=== PATIENT | male | born 1955 | race Caucasian/White ===

== ENCOUNTER 2023-04-29 13:46 | Emergency (ER) | payer MEDICARE, OTHER, SELFPAY ==
[2023-04-29 14:15] LABS: % Basophils 1.3 % (0-2); % Eosinophils 4.6 % (0-6); % Immature Granulocytes 0.3 % (0-0.5); % Lymphocytes 20.6 % (20.5-51.1); % Monocytes 10.6 % (1.7-9.3); % Neutrophils 62.6 % (42.2-75.2); Absolute Basophils 0.1 10^3/uL (0-0.2); Absolute Eosinophils 0.3 10^3/uL (0-0.7); Absolute Lymphocytes 1.4 10^3/uL (1.2-3.4); Absolute Monocytes 0.7 10^3/uL (0.1-0.6); Absolute Neutrophils 4.2 10^3/uL (1.4-6.5); Hemoglobin 14.8 g/dL (13.0-18.0); Mean Corp Hgb Conc. 34.4 g/dL (33.0-37.0); Mean Corpuscular Volume 92.9 fL (80.0-94.0); Mean Platelet Volume 8.9 fL (7.4-10.4); Nucleated Red Blood Cells % 0 % (-); Platelet Count 252 10^3/uL (130-400); Red Blood Cell Count 4.63 10^6/uL (4.70-6.10); Red Cell Dist. Width 12.6 % (11.5-14.5); White Blood Cell Count 6.7 10^3/uL (4.8-10.8)
[2023-04-29 14:39] LABS: Troponin I < 0.012 ng/ml
[2023-04-29 14:43] LABS: ALT (SGPT) 26 U/L (0-50); AST (SGOT) 26 U/L (17-59); Albumin 4.7 g/dl (3.5-5.0); Alkaline Phosphatase 93 U/L (38-126); Blood Urea Nitrogen 15 mg/dl (9-20); Calcium 9.4 mg/dl (8.4-10.2); Carbon Dioxide 23 mmol/L (22-30); Chloride 108 mmol/L (98-107); Glucose 99 mg/dl (70-99); Potassium 4.1 mmol/L (3.5-5.1); Sodium 139 mmol/L (135-145); Total Bilirubin 0.8 mg/dl (0.2-1.3); Total Protein 7.8 g/dl (6.3-8.2); eGFR > 60.00
[2023-04-29 16:00] VITALS: BP 155/88
--- NOTE | 2023-04-29 16:05 | ED.GENMED ---
History of Present Illness
<Rafaela Tidwell PA-C - Last Filed: 04/29/23 19:23>
General
Chief Complaint: Visual Problem
Source: patient
Exam Limitations: none
Time Seen by Provider: 04/29/23 15:57
Nursing documentation reviewed up to this point in time: agreed with
Travel History
Have you had any contact with someone who has COVID-19?: No
Do you have any symptoms of coronavirus? Fever > 100 degrees, chills, cough, shortness of breath, sore throat, loss of taste or smell, muscle aches, or headache?: No
History of Present Illness
History of Present Illness:
This is a 67-year-old male with past medical history of asthma, A-fib on Eliquis, vertebral artery stenosis, vertigo, presents today with concerns of an episode of flushing, some lightheadedness, and palpitations while driving. Patient states that
this started to occur only when he sharply looked to his left and his rearview mirror. The episode lasted around 30 seconds and quickly resolved. Patient is currently asymptomatic. He was concerned and presented today because back in November,
he had a similar episode that lasted a few minutes and had associated double vision, also occurring in the car. He did not have double vision or any visual changes today. He states that at that time in November, he was eventually found to have
vertebral artery stenosis is the likely cause to his symptoms, however the stenosis was not severe enough to need stent placement. Patient was told to return if he ever has any similar symptoms. He also has associated right sided frontal headache
and persistent congestion following a COVID infection a few weeks ago. Patient denies chest pain, back pain, shortness of breath.
Past History
<Rafaela Tidwell PA-C - Last Filed: 04/29/23 19:23>
Past History
ED Past Medical History: Asthma, GERD, HTN and Other (palpitations, osteoarthritis and fractures)
ED Past Surgical History: Appendectomy and Orthopedic (Knee surgery, lumbar discectomy, right shoulder surgery, right elbow surgery in 1994 and left thumb surgery and 16/01)
Social History
Tobacco: Non-smoker
Alcohol: Occasional
Drug: None
Personal:
Living: with family
Employment: Employed
Family History
Family History: Negative Early CAD
Review of Systems
<GENIE Lee Last Filed: 04/29/23 19:23>
Review of Systems
All Other Systems: ROS reviewed and negative except as documented in HPI and ROS
Phy Exam
<GENIE Lee Last Filed: 04/29/23 19:23>
Physical Exam
Physical Exam:
General: Patient is well-appearing and is in no acute distress.
Skin: Skin is warm dry, there is a small circular red lesion on the right cheek which patient states is a result of radiation treatment for skin cancer
HEENT: Eyes�no nystagmus
Cardiac: Regular rate and rhythm, no murmur
Pulm: Normal respiratory effort
Neurological: Patient is alert and oriented x 3. Renal nerves II through XII intact, no focal neurologic deficit. No tenderness testing intact, [id number] testing intact.
Course
<GENIE Lee Last Filed: 04/29/23 19:23>
Orders/Labs/Results
Orders:
Orders
04/29/23 13:54
Electrocardiogram (*1) Urgent
Reason for Study: Chest Pain
EKG- Treatment ONCE
04/29/23 14:05
Complete Blood Count/With Diff Urgent
Comprehensive Metabolic Panel Urgent
Troponin I Urgent
04/29/23 17:27
CT Head & Neck Angio W/wo IV Urgent
Reason For Exam: transient visual change
Abnormal Lab Results
04/29/23
14:05
RBC 4.63 L 10^6/uL
(4.70-6.10)
MCH 32.0 H pg
(27.0-31.0)
Absolute Monos (auto) 0.7 H 10^3/uL
(0.1-0.6)
Monocytes % 10.6 H %
(1.7-9.3)
Chloride 108 H mmol/L
(98-107)
04/29/23 14:05
04/29/23 14:05
Vital Signs
Initial and Last Documented VS:
Initial Vital Signs
Temp Pulse Resp Pulse Ox
97.8 F 78 18 94
04/29/23 13:52 04/29/23 13:52 04/29/23 13:52 04/29/23 13:52
Last Documented Vital Signs
Temp Pulse Resp BP Pulse Ox
97.8 F 67 15 145/70 95
04/29/23 13:52 04/29/23 19:00 04/29/23 19:00 04/29/23 19:00 04/29/23 19:00
Alizalt;Salinas Casanova, - Last Filed: 04/29/23 19:47>
Orders/Labs/Results
Orders:
Orders
04/29/23 13:54
Electrocardiogram (*1) Urgent
Reason for Study: Chest Pain
EKG- Treatment ONCE
04/29/23 14:05
Complete Blood Count/With Diff Urgent
Comprehensive Metabolic Panel Urgent
Troponin I Urgent
04/29/23 17:27
CT Head & Neck Angio W/wo IV Urgent
Reason For Exam: transient visual change
Abnormal Lab Results
04/29/23
14:05
RBC 4.63 L 10^6/uL
(4.70-6.10)
MCH 32.0 H pg
(27.0-31.0)
Absolute Monos (auto) 0.7 H 10^3/uL
(0.1-0.6)
Monocytes % 10.6 H %
(1.7-9.3)
Chloride 108 H mmol/L
(98-107)
04/29/23 14:05
04/29/23 14:05
Vital Signs
Initial and Last Documented VS:
Initial Vital Signs
Temp Pulse Resp Pulse Ox
97.8 F 78 18 94
04/29/23 13:52 04/29/23 13:52 04/29/23 13:52 04/29/23 13:52
Last Documented Vital Signs
Temp Pulse Resp BP Pulse Ox
97.8 F 67 15 145/70 95
04/29/23 13:52 04/29/23 19:00 04/29/23 19:00 04/29/23 19:00 04/29/23 19:00
<Rafaela Tidwell PA-C - Last Filed: 04/29/23 19:23>
MDM/Problems Addressed
MDM/Problems Addressed:
Differentials include critical vertebral artery stenosis, carotid stenosis, tension headache, sinusitis, upper respiratory tract infection
Chronic conditions affecting care:
Hypertension, A-fib, PDA, GERD, vertebral artery stenosis
Acute Exacerbation and/or Progression of Chronic Illness:
n/a
<Rafaela Tidwell PA-C - Last Filed: 04/29/23 19:23>
*Critical Care Note
Total Time (30-74mins, 75-104mins- exclusive of procedures): Not Applicable
Data Reviewed
Review of Other/Old Records Reveals: Records (Reviewed documentation in November from transesophageal echo she had)
<Rafaela Tidwell PA-C - Last Filed: 04/29/23 19:23>
Patient Management
Escalation/DeEscalation of care consider admission/obs:
This is a 59-year-old male with past medical history of vertebral artery stenosis, vertigo who presents today following episode of flushing and lightheadedness. Patient states that this occurred while driving. He reported emergency department
today because he is concerned because he had a similar episode in November where he was diagnosed with vertebral artery stenosis. Currently, he is asymptomatic. Physical exam is unremarkable, he has no focal neurologic deficits. His CBC and CMP
are unremarkable, and his vital signs are stable. His CTA of the head and neck revealed no acute intracranial abnormality and no critical stenosis or occlusion of picayune of Laz[place]. Although patient states that this feels different than his normal
vertigo, I suspect his symptoms are likely related to position, as she only came on when he quickly turned his head. Patient states that he plans to call Dr. Zeng and Dr. Dunaway, his braille teacher and neurologist, for a follow-up appointment tomorrow.
ED Attending Note
<Rafaela Tidwell PA-C - Last Filed: 04/29/23 19:23>
-
Portions of this chart may have been created with voice recognition software.� Occasional wrong word or��sound alike� substitutions may have occurred due to the inherent limitations of voice recognition software.
<Salinas Casanova DO - Last Filed: 04/29/23 19:47>
ED Attending Note
Patient seen and examined by attending physician: Yes
I performed the substantive portion of visit, reviewed & personally made and approve the management plan that is documented in note by myself or HYACINTH.: Yes
ED Attending Note:
I agree with Rafaela's note.
Patient presents after an episode of facial flushing and body flushing while driving. Patient states the episode was not the same but reminiscent of an episode of diplopia he had in October. At that time he had a stroke evaluation and was
ultimately found to have some level of vertebral artery stenosis. An angiogram was performed which showed noncritical disease and no intervention was undertaken. Patient states he had COVID in February and since then has not felt right. He has a
pressure in the left frontal area.
VSS
Awake, interactive. Acceptable vital signs
Heart: no murmur
Non-focal neuro exam at this time.
Patient has high level of concern that he is having progression of his vertebral artery stenosis. The symptoms he is having today are not really consistent with a focal neurologic event. However patient relays information that his neurologist
instructed him to be very vigilant about any symptoms and immediately return to the emergency room should he have any. Will obtain a plain CT and a CTA to exclude any significant changes.
Discharge Plan
Departure
Patient Disposition: Home (Routine Discharge)
Date of Disposition: 04/29/23
Time of Disposition: 18:59
Patient with high blood pressure during this ER visit?: Yes
Condition: Good
Discharge Problem:
Facial flushing, Light-headedness
Instructions: Headache, Adult, Vertigo (a Type of Dizziness) (DC)
Prescriptions:
No Action
losartan 50 MG tablet
100 mg PO DAILY
Eliquis 5 MG tablet
5 mg PO BID Qty: 0 0RF
fluticasone propion-salmeterol [Advair Diskus] 250-50 mcg/dose Blister With Device
1 inh INHALATION DAILY
aspirin 81 mg Tablet
81 mg PO DAILY
verapamil 120 MG tablet extended release
60 mg PO DAILY
rosuvastatin 40 mg Tablet
40 mg PO DAILY
Referrals:
NONE,* [Active] -
Activity Restrictions/Additional Instructions:
CTA of the head and neck did not show any severe blockages.
Please call Dr. Gates and Dr. Dunaway tomorrow for follow-up appointment.
Please return to emergency department should you experience any acute worsening of her symptoms, double vision, chest pain, shortness of breath, back pain, syncopal episodes, or other concerning signs or symptoms.
Interventions
Interventions:
*Risk Screen - Suicide Last Done: 04/29/23 19:14
*General Assessment Last Done: 04/29/23 19:14
*Neglect/Abuse Screening Last Done: 04/29/23 19:14
ED- Fall Risk Assessment Last Done: 04/29/23 19:14
*ED COVID-19 Vaccine History Last Done: 04/29/23 19:14
*Nursing Disposition Last Done: 04/29/23 19:14
ED- Neurological Assessment Last Done: 04/29/23 16:07
Discharge Date and Time
Discharge Date/Time: 04/29/23 19:15
[2023-04-29 17:00] VITALS: BP 165/95
[2023-04-29 18:00] VITALS: BP 165/84
[2023-04-29 19:00] VITALS: BP 145/70
== END 2023-04-29 19:15 | disposition home or self-care (01) ==
LOC: EMR 13:46
PROVIDERS: EMERGENCY PHYSICIAN Emergency Medicine; FAMILY PHYSICIAN Internal Medicine
DX: R23.2 Flushing (principal); R42 Dizziness and giddiness; I10 Essential (primary) hypertension; I48.91 Unspecified atrial fibrillation; K21.9 Gastro-esophageal reflux disease without esophagitis
CPT/HCPCS: 99285; 70496; 70498; 80053; 84484; 85025; 93005; Q9967